=== PATIENT | female | born 1990 | race Caucasian/White ===

== ENCOUNTER 2021-06-01 15:02 | Emergency (ER) | payer MEDICAID, SELFPAY ==
[2021-06-01 15:22] VITALS: BP 189/89; PULSE 99; RESP 20; TEMP 37.5; O2SAT 100; BMI 27.9
[2021-06-01 15:44] LABS: Appearance Urine HAZY; Color Urine YELLOW; Glucose Urine UA NEG (NEG); Leukocyte Esterase Urine NEG (NEG); Nitrite Urine POS (NEG); PH 6.5 (5.0-8.0); UACC Culture Trigger YES; Urine Blood 3+ (NEG); Urine Ketones NEG (NEG); Urine Protein TRACE MG/DL (NEG-TRACE)
[2021-06-01 15:57] LABS: Bacteria Urine 1+ /LPF; RBC Urine TNTC /HPF (0); Squamous Epithelial Cell Urine 1+ /LPF
--- NOTE | 2021-06-01 16:25 | ED.GENADULT ---
HPI - General Adult General Chief complaint: General Medical Stated complaint: Multiple complaints Time Seen by Provider: 06/01/21 16:23 History of Present Illness HPI narrative: Patient 31-year-old female presents today with having anxiety like symptoms. Patient has a history diabetes. Been under lot of stress at home. Feels that she has palpitation tingling sensation in her hands. Was also worried that she has a urinary tract infection. No fever no chills. Patient did not check her sugars she did have her COVID vaccine. She denies any focal weakness. She is currently having her menstruations Related Data Allergies Allergy/AdvReac Type Severity Reaction Status Date / Time No Known Allergies Allergy Verified 06/01/21 15:22 [No Known Allergies*] Review of Systems Review of Systems: No fever no chills Positive palpitation positive shaking Positive anxiety All systems reviewed otherwise negative Yes all other systems are reviewed and are negative PMFSH Past Medical History Attestation statement: The following information was validated with the patient. Medical History Anxiety Diabetes High blood pressure Migraine Panic attacks Social History Social History Advance Directives: No Advance Directives Information Provided: Yes Patient : No Physical Exam Vital Signs: Vital Signs: Last Vital Signs Temp 99.5 F 06/01/21 15:22 Pulse 99 06/01/21 15:22 Resp 20 06/01/21 15:22 BP 189/89 H 06/01/21 15:22 Pulse Ox 100 06/01/21 15:22 Body Mass Index 27.9 Appearance: Alert. Oriented X3. No acute distress. Eyes: Pupils equal, round and reactive to light. ENT: Pharynx normal. Neck: Normal inspection. Neck supple. No lymph nodes noted. No crepitus CVS: Normal heart rate and rhythm. Pulses normal. Normal S1 and S2 Respiratory: No respiratory distress. Breath sounds normal. No Wheezing. No rales Abdomen: Soft and nontender. No rigidity. No distention. good BS x4 Skin: Skin warm and dry. Normal skin color. Normal skin turgor. Extremities: No lower extremity edema. Neurovascular intact to all extremities. No Lacerations. No Rash Neuro: Oriented X 3. No motor deficit. No sensory deficit. Moving all extermities. No slurred speech Medical Decision Making MDM Narrative Medical decision making narrative: Well-appearing not acute distress. Patient's sugar was 199. No evidence for hypoglycemia or extreme hyperglycemia. Patient's urine showed no evidence of infection. We will go ahead and get an EKG if it is negative will discharge patient home likely secondary to anxiety. Patient's EKG showed a sinus pattern heart rate is 100 DC QRS QT within normal limits there is no acute ST segment elevation. Patient signs and symptoms consistent with anxiety. Will discharge patient Lab Data Labs: Lab Results 06/01/21 06/01/21 Range/Units 15:38 16:32 POC Glucose 199 H (60-115) mg/dL Urine Color YELLOW Urine Appearance HAZY Urine pH 6.5 (5.0-8.0) Ur Specific [place] 1.020 (1.005-1.025) Urine Protein TRACE (NEG-TRACE) MG/DL Urine Glucose (UA) NEG (NEG) MG/DL Urine Ketones NEG (NEG) MG/DL Urine Blood 3+ H (NEG) Urine Nitrite POS H (NEG) Ur Leukocyte Esterase NEG (NEG) Urine RBC TNTC H (0) /HPF Urine WBC 1-4 (0-4) /HPF Ur Squamous Epith Cells 1+ /LPF Urine Bacteria 1+ /LPF Discharge Plan Discharge Clinical Impression: Anxiety Patient Disposition: Home, Self-Care Instructions: Anxiety (ED) Referrals: Physician,Unknown [Physician] - 2 days
--- NOTE | 2021-06-01 16:26 | ECG_ITS ---
Test Reason : URNARY Blood Pressure : / mmHG Vent. Rate : 107 BPM Atrial Rate : 107 BPM P-R Int : 122 ms QRS Dur : 088 ms QT Int : 346 ms P-R-T Axes : 058 011 026 degrees QTc Int : 461 ms Sinus tachycardia Possible Left atrial enlargement Borderline ECG No previous ECGs available Referred By: Tiesha Brown Electronically Signed By:DAMIAN LOTT
[2021-06-01 16:37] LABS: Glucose, Whole Blood 199 mg/dL (60-115)
== END 2021-06-01 17:20 | disposition home or self-care (01) ==
PROVIDERS: Emergency Provider Emergency Medicine Emergency Medical Services; PCP Registered Nurse
DX: F41.1 Generalized anxiety disorder (principal); F43.0 Acute stress reaction; Z79.899 Other long term (current) drug therapy
CPT/HCPCS: 81001; 82947; 87086; 87088; 87186; 93005; 99283